=== PATIENT | female | born 1945 | race Caucasian/White ===

== ENCOUNTER → 2016-06-07 | Outpatient (CLI) | payer MEDICARE, OTHER ==
--- NOTE | 2016-06-07 13:07 | BD ---
EXAMINATION TYPE: MG DEXA axial skeleton. DATE OF EXAM: 06/07/2016 12:46 PM COMPARISON: 02.29.2012 DEXA bone scan. CLINICAL HISTORY: M81.0 OSTEOPOROSIS Height: 57 Weight: 147 FRAX RISK QUESTIONS: Alcohol (3 or more units per day): NO Family History (Parent hip fracture): YES Glucocorticoids (More than 3mos): YES (Ex: prednisone, prednisolone, methylprednisolone, dexamethasone, and hydrocortisone). History of Fracture in Adulthood: YES Secondary Osteoporosis: YES 1. Type 1 Diabetes: NO 2. Hyperthyroidism: NO 3. Menopause before 45: YES 4. Malnutrition: NO 5. Chronic liver disease: NO Rheumatoid Arthritis: NO Current Tobacco Use: NO RISK FACTORS HISTORY OF: Other Fractures since Age 49: RT SHOULDER, LT HUMERUS When: > 49 YRS OLD Family History of Osteoporosis: YES, HER MOTHER, BROKEN FEMUR Smoke tobacco: NO Drink Alcohol: NO Active: YES Diet low in dairy products/other sources of calcium: YES Postmenopausal woman: 40 YRS OLD.. TOTAL HYST Take estrogen and/or progesterone medications: NONE NOW BUT ESTROGEN FOR 19 YRS. IN THE PAST How lon YRS Lost more than 2 inches in height since high school: YES Adrenal Insufficiency: NO MEDICATIONS: Prednisone or other steroids: PREDNISONE ON AND OFF FOR ILLNESS AND PAIN....NOT CONTINUOUS. Thyroid Medications: YES Which medication: SYNTHROID How Long: OVER 15 YRS Osteoporosis Medications: PROLIA How Lon YRS Additional Medications: CALCIUM AND VIT D, BP MEDS, EFFEXOR, JENYLIA FOR MS, BP MEDS...X3 Additional History: MS, OSTEOPOROSIS,HYPERTENSION EXAM MEASUREMENTS: Bone mineral densitometry was performed using the [employer] System. Bone mineral density as measured about the Lumbar spine is: ----- L1-L4(G/cm2): 1.116 T Score Values are as follows: ----- L1: -1.6 ----- L2: -1.0 ----- L3: -0.7 ----- L4: -0.5 ----- L1-L4: -0.9 Bone mineral density has: Increased 16.6% since study of: 02.29.2012 Bone mineral density about the R hip (g/cm2): 0.809 Bone mineral density about the L hip (g/cm2): 0.816 T Score values are as follows: -----R Neck: -2.1 -----L Neck: -2.1 -----R Intertrochanter: -2.0 -----L Intertrochanter: -1.7 Bone mineral density has: Increased 10.5% since study of: 02.29.2012 FRAX %'S: 30.0% CHANCE OF A MAJOR OSTEOPOROTIC FX AND A 11.1% FOR A HIP FX.....PROBABILITY OF FX IN 10 YRS TIME IMPRESSION: Osteopenia (T Score between -2.5 and -1 as noted by T score values at femoral neck level in both hips . Bone density is overall improved from prior exam. There remains slightly increased risk of fracture and the patient may be considered for treatment. Re-Screen 1-2 years. NOTE: T-SCORE=SD OF THE YOUNG ADULT MEAN.
--- NOTE | 2016-06-07 14:35 | MM ---
Reason for exam: screening (asymptomatic). Last mammogram was performed 1 year and 4 months ago. History: Patient is postmenopausal. Took estrogen for 19 years beginning at age 40. Physical Findings: A clinical breast exam by your physician is recommended on an annual basis and results should be correlated with mammographic findings. MG Screening Mammo w CAD Bilateral CC and MLO view(s) were taken. Prior study comparison: February 19, 2015, bilateral MG screening mammo w CAD. July 27, 2010, bilateral digital screening mammo w/CAD. There are scattered fibroglandular densities. Finding: There are typically benign round calcifications in the central position of the left breast. There is no discrete abnormality. ASSESSMENT: Negative, BI-RAD 1 RECOMMENDATION: Routine screening mammogram of both breasts in 1 year.
== END | disposition home or self-care (01) ==
LOC: RADMAMWWP 12:03
PROVIDERS: ATTEND Family Medicine
DX: Z12.31 Encounter for screening mammogram for malignant neoplasm of breast (principal); M85.80 Other specified disorders of bone density and structure, unspecified site
CPT/HCPCS: 77080; G0202; 36415; 80061; 82306; 85025

== ENCOUNTER → 2016-06-07 | Outpatient (CLI) | payer MEDICARE, OTHER ==
[2016-06-07 13:03] LABS: Basophils # (A) 0.1 k/uL (0-0.2); Basophils % (A) 1 %; CHCM 33.5; Eosinophils # (A) 0.3 k/uL (0-0.7); Eosinophils % (A) 5 %; HCT 44.1 % (34.0-46.0); HDW 2.44; HGB 14.6 gm/dL (11.4-16.0); Luc # (Auto) 0.15; Luc % (Auto) 3; Lymphocytes # (A) 0.4 k/uL (1.0-4.8); Lymphocytes % (A) 7 %; MCH 32.8 pg (25.0-35.0); MCHC 33.1 g/dL (31.0-37.0); Mean Platelet Volume 7.5; Monocytes # (A) 0.3 k/uL (0-1.0); Monocytes % (A) 6 %; Neutrophils # (A) 4.7 k/uL (1.3-7.7); Neutrophils % (A) 79 %; RBC 4.45 m/uL (3.80-5.40); RDW 12.8 % (11.5-15.5); WBC (Perox) 6.39
[2016-06-07 13:42] LABS: Cholesterol 179 mg/dL (<200); HDL Cholesterol 63 mg/dL (40-60); Triglycerides 163 mg/dL (<150)
== END | disposition home or self-care (01) ==
LOC: LABWHC1 12:44
PROVIDERS: ATTEND Nurse Practitioner Acute Care
DX: E55.9 Vitamin D deficiency, unspecified (principal); Z51.81 Encounter for therapeutic drug level monitoring
CPT/HCPCS: 36415; 80061; 82306; 85025

== ENCOUNTER → 2016-07-21 | Outpatient (CLI) | payer MEDICARE, OTHER ==
[~2016-07-21] MED LIST: DENOSUMAB 60 MG/ML 1 ML SYRINGE SQ ONE
[2016-07-21 14:15] VITALS: BP 124/80; PULSE 68; RESP 16; TEMP 98
== END | disposition home or self-care (01) ==
LOC: PROCWHC3 13:35
PROVIDERS: ATTEND Family Medicine
DX: M81.0 Age-related osteoporosis without current pathological fracture (principal)
CPT/HCPCS: 96372; J0897

== ENCOUNTER → 2016-12-27 | Outpatient (CLI) | payer MEDICARE, OTHER ==
[2016-12-27 14:38] LABS: Basophils % (A) 1 %; CH 31.3; CHCM 31.9; Eosinophils # (A) 0.2 k/uL (0-0.7); Eosinophils % (A) 3 %; HCT 42.6 % (34.0-46.0); HDW 2.27; HGB 13.7 gm/dL (11.4-16.0); Luc # (Auto) 0.11; Luc % (Auto) 1; Lymphocytes # (A) 0.6 k/uL (1.0-4.8); Lymphocytes % (A) 7 %; MCH 31.9 pg (25.0-35.0); MCHC 32.3 g/dL (31.0-37.0); MCV 98.6 fL (80.0-100.0); Mean Platelet Volume 9.1; Monocytes # (A) 0.5 k/uL (0-1.0); Monocytes % (A) 6 %; Neutrophils # (A) 6.8 k/uL (1.3-7.7); Neutrophils % (A) 82 %; RBC 4.31 m/uL (3.80-5.40); RDW 14.1 % (11.5-15.5); WBC 8.3 k/uL (3.8-10.6); WBC (Perox) 8.84
[2016-12-27 14:50] LABS: ALT 44 U/L (9-52); AST 20 U/L (14-36); Alkaline Phosphatase 71 U/L (38-126); Anion Gap 11 mmol/L; Blood Urea Nitrogen 17 mg/dL (7-17); Calcium 9.5 mg/dL (8.4-10.2); Carbon Dioxide 25 mmol/L (22-30); Chloride 102 mmol/L (98-107); Glucose 96 mg/dL (74-99); Non-African American GFR(MDRD) >60 (>60 ml/min/1.73 sqM); Sodium 138 mmol/L (137-145); Total Bilirubin 0.4 mg/dL (0.2-1.3); Total Protein 6.5 g/dL (6.3-8.2)
[2016-12-31 14:49] LABS: Mis test requested (Blood) Stratify JCV Ab/Indx
== END | disposition home or self-care (01) ==
LOC: LABWHC1 14:07
PROVIDERS: ATTEND Nurse Practitioner Acute Care
DX: E55.9 Vitamin D deficiency, unspecified (principal); G35 Multiple sclerosis; R41.3 Other amnesia
CPT/HCPCS: 36415; 80053; 82306; 82607; 85025

== ENCOUNTER → 2016-12-28 | Outpatient (CLI) | payer MEDICARE, OTHER ==
--- NOTE | 2016-12-28 12:14 | MR ---
EXAMINATION TYPE: MR brain wo/w con DATE OF EXAM: 12/28/2016 COMPARISON: Prior MRI brain December 18, 2015. HISTORY: MS TECHNIQUE: Multiplanar, multisequence images of the brain and brainstem is performed without and with IV contras t, utilizing 7.5 mL intravenous Gadavist gadolinium contrast is administered intravenously. Demyelin ating disease protocol with additional Sagittal Flair sequence performed. FINDINGS: T2 Lesions Present : Yes Approximate Number of Lesions: Difficult to accurately quantify due to confluent periventricular appe arance redemonstrated Locations Identified : Confluent periventricular with scattered deep and juxtacortical lesions presen t. Size of Reference Lesion(s): 1. 1.2 cm x 0.7 cm x 1.6 cm on axial image 24 and sagittal image 24 high right parietal centrum semi ovale lesion stable 2 3.1 cm x 1.0 cm x 1.4 cm on axial image 12 and sagittal image 9 left temporal periventricular les ion felt stable Enhancing Lesion(s) Present: Yes rectangular area of enhancement right aspect of medial cerebellum se en best sagittal image 90 series 701 appears to extend to vermis on sagittal image [address] of right mid brain on axial image 5 series 702 new from prior. T1 Hypointense Lesion(s) Present: Yes Change from Prior: Stable Diffusion weighted images demonstrate no evidence of a recent infarct or other diffusion abnormality. There is no worrisome extra-axial fluid collection. The ventricular system and cisternal spaces ar e normal in size and appearance. The brain volume is age appropriate. Midline structures demonstrate normal morphology. Prominent sella is redemonstrated. The craniocervi hawa junction appears within normal limits. Post contrast images redemonstrates 7 mm area of homogene ous extra-axial enhancement right superior temporal region felt to reflect small meningioma on axial image 14 confirmed on sagittal image 138. This is unchanged from prior. The dural venous sinuses appe ar patent. Mild mucosal thickening ethmoid sinuses bilaterally is present. Globes are intact. IMPRESSION: Moderate to severe nonspecific white matter changes redemonstrated likely on basis of mul tiple sclerosis and/or combination of chronic small vessel ischemic change. Not significantly changed from prior however there is rectangular shaped area of enhancement right cerebellum present that zuniga s not appear to correlate with white matter focus, etiology uncertain. Active disease needs to BE con sidered.
== END | disposition home or self-care (01) ==
LOC: RADMRIMAIN 10:53
PROVIDERS: ATTEND Nurse Practitioner Acute Care
DX: R90.82 White matter disease, unspecified (principal); G35 Multiple sclerosis
CPT/HCPCS: 70553; A9581

== ENCOUNTER → 2016-12-29 | Outpatient (CLI) | payer MEDICARE, OTHER ==
--- NOTE | 2016-12-29 14:35 | MR ---
MRI CERVICAL SPINE: CLINICAL HISTORY: Multiple sclerosis TECHNIQUE: Multiplanar, multisequence imaging of the cervical spine is performed without and with IV contrast, 7 cc of gadolinium was given intravenously. Multiple sclerosis protocol with additional PD sagittal sequence obtained. COMPARISON: MRI cervical spine December 18, 2015 FINDINGS: Coronal images show persistent levoconvex scoliosis centered in the upper thoracic spine. S agittal images of the cervical spine show the craniocervical junction to appear within normal limits. The cervical and upper thoracic spinal cord is normal in course, caliber, and signal. There is pers istent subtle grade 1 retrolisthesis of C5 on C6. The vertebral body heights remain normal. There is persistent mild to moderate multilevel disc space narrowing most prominent at C4-C5 and C5-C6 levels . Posterior disc herniations are seen C3-C4 through C6-C7 level on sagittal images similar to prior. The bone marrow signal intensity shows some endplate diminished T1 and T2 signal anterior C5-C6 leve l where there is mild to moderate spurring consistent with Modic type III degenerative change. No ramón picious enhancement is noted. Axial images show C2-C3 level to remain within normal limits. Axial images at C3-C4 level show broad-based central disc protrusion mildly effacing anterior thecal sac, bilateral neural foramina are patent. No significant change from prior study is seen. Axial images at C4-C5 level show spondylolisthesis and broad-based posterior disc protrusion effacing anterior thecal sac with some left-sided uncovertebral facet degenerative changes, bilateral neural foramina remain patent. No significant change from prior. Axial images at C5-C6 level show most prominent broad-based posterior disc protrusion effacing anteri or thecal sac and causing mild to moderate left greater than right neural foraminal narrowing. No sig nificant change from prior study is seen. Axial images at C6-C7 level show right paracentral disc protrusion effacing anterior thecal sac, bila teral neural foramina are patent. Findings stable from prior. Axial images at C7-T1 level are felt within normal limits. Visualized portion of thyroid gland is unremarkable. No suspicious enhancement is seen. IMPRESSION: No MRI evidence for demyelinating disease involvement in the cervical spinal cord. Multil evel degenerative changes in the cervical spine as detailed above most prominent at C4-C5 and C5-C6 l evels. Overall no significant change from prior MRI is noted.
== END | disposition home or self-care (01) ==
LOC: RADMRIMAIN 12:42
PROVIDERS: ATTEND Psychiatry & Neurology Neurology
DX: M47.812 Spondylosis without myelopathy or radiculopathy, cervical region (principal)
CPT/HCPCS: 72156; A9581

== ENCOUNTER → 2016-12-30 | Outpatient (CLI) | payer MEDICARE, OTHER ==
--- NOTE | 2016-12-30 16:03 | MR ---
EXAMINATION TYPE: MR lumbar spine wo/w con DATE OF EXAM: 12/30/2016 COMPARISON: Prior MR lumbar spine 12/18/2015 HISTORY: Low Back Pain TECHNIQUE: Multiplanar, multisequence images of the lumbar spine were acquired utilizing 7.5 mL intravenous Gada vist gadolinium contrast. L1-L2: Posterior broad-based disc bulge causes mild anterior mass effect on the thecal sac. There is facet arthropathy. No significant foraminal encroachment or central stenosis. L2-L3: Posterior broad-based disc bulge causes mild anterior mass effect on the thecal sac. There is some facet arthropathy. There is some encroachment on the lateral recesses. On mild central stenosis. L3-L4: Posterior broad-based disc bulge causes anterior mass effect on the thecal sac similar to prio r exam. Facet arthropathy with hypertrophy of ligamentum flavum encroaches on the lateral recesses. C ircumferential extension of disc material encroaches on the neural foramina greater on the right than on the left. L4-L5: Listhesis contributes to cause a trefoil appearance of the thecal sac due to facet arthropathy and hypertrophy of ligamentum flavum, circumferential extension of posterior disc bulge causes mild anterior mass effect on the thecal sac and lateral extension causes foraminal encroachment left great er than right. L5-S1: Facet arthropathy changes present. Posterior central disc herniation shows a similar appearanc e and shows mild central anterior mass effect on the thecal sac. Circumferential extension of endplat e disc complex causes foraminal encroachment greater on the left likely contributed by the spinal cur vature. Lumbar segments are intact. No paraspinal masses are identified. Conus medullaris has a normal appe arance. Scoliotic curvature is again noted. Lumbar vertebral bodies show stable height and alignment, there is anterolisthesis grade 1 L4-5. Loss of disc height and signal is present at the intervertebr al levels, there is endplate discogenic marrow signal change, multilevel spondylosis. T11 shows mild anterior wedging as on prior exam. No significant interval change in enhancement following contrast menstruation. IMPRESSION: Degenerative disc disease and facet arthropathy, multilevel foraminal encroachment, spinal curvature, spondylolisthesis all similar to prior exam.
== END | disposition home or self-care (01) ==
LOC: RADMRIMAIN 12:09
PROVIDERS: ATTEND Nurse Practitioner Acute Care
DX: M51.36 Other intervertebral disc degeneration, lumbar region (principal); M46.96 Unspecified inflammatory spondylopathy, lumbar region; M43.16 Spondylolisthesis, lumbar region; M54.2 Cervicalgia; G35 Multiple sclerosis
CPT/HCPCS: 72158; A9581

== ENCOUNTER → 2017-04-08 | Outpatient (CLI) | payer MEDICARE, OTHER | END | disposition home or self-care (01) | LOC: PROCWHC3 14:43 | PROVIDERS: ATTEND Physician Assistant | DX: J11.1 Influenza due to unidentified influenza virus with other respiratory manifestations (principal) | CPT/HCPCS: 71046; 87502 ==

== ENCOUNTER → 2017-04-08 | Outpatient (CLI) | payer MEDICARE, OTHER ==
--- NOTE | 2017-04-08 15:34 | XR ---
EXAMINATION TYPE: XR chest 2V DATE OF EXAM: 04/08/2017 COMPARISON: 11/22/2012 HISTORY: Flulike symptoms with shortness of breath. TECHNIQUE: Frontal and lateral views of the chest are obtained. FINDINGS: There is no focal air space opacity, pleural effusion, or pneumothorax seen. Calcified rig ht midlung mass is similar to the prior exam of 11/22/2012 and again may represent a Ghon complex. Th e cardiac silhouette size is within normal limits. The osseous structures are intact. Prior fractur e deformity is seen of the left proximal humerus. Cholecystectomy clips are noted within the right up per quadrant. There is a mild dextroscoliotic curvature of the thoracic spine. IMPRESSION: No acute cardiopulmonary process.
== END | disposition home or self-care (01) ==
LOC: RADXRMAIN 15:18
PROVIDERS: ATTEND Physician Assistant
DX: B34.9 Viral infection, unspecified (principal)
CPT/HCPCS: 71046

== ENCOUNTER → 2017-05-16 | Outpatient (CLI) | payer MEDICARE, OTHER ==
[2017-05-16 17:30] LABS: Blood Urea Nitrogen 13 mg/dL (7-17)
== END | disposition home or self-care (01) ==
LOC: LABWHC1 16:48
PROVIDERS: ATTEND Psychiatry & Neurology Neurology
DX: G35 Multiple sclerosis (principal)
CPT/HCPCS: 36415; 82565; 84520

== ENCOUNTER → 2017-05-18 | Outpatient (CLI) | payer MEDICARE, OTHER ==
--- NOTE | 2017-05-18 16:26 | MR ---
EXAMINATION TYPE: MR brain wo/w con DATE OF EXAM: 05/18/2017 COMPARISON: 12/28/2016 and 12/18/2015 HISTORY: Multiple sclerosis. Follow-up exam. TECHNIQUE: Multiplanar, multisequence images of the brain and brainstem is performed without and with IV contras t, utilizing 7 mL intravenous Gadavist gadolinium contrast is administered intravenously. Demyelinat ing disease protocol with additional Sagittal Flair sequence performed. FINDINGS: T2 Lesions Present : Yes Approximate Number of Lesions: Exact number is again difficult to quantify as there is diffuse conflu ence. Locations Identified : Juxtacortical, pericallosal, and confluent periventricular Size of Reference Lesion(s): 1. 1.2 cm x 0.8 cm x 1.6 cm on axial image 25 and sagittal image 23 again within the high right christopher etal centrum semiovale. 2 0.7 cm x 1.0 cm x 0.7 cm on axial image 22 and sagittal image 13 within the left frontal pericall osal white matter. The previously seen temporal lesion is not accurately remeasured given slice selec tion. Enhancing Lesion(s) Present: No. The previously seen enhancing lesion in the right cerebellum is no l onger visualized. T1 Hypointense Lesion(s) Present: Yes Change from Prior: Stable Diffusion weighted images demonstrate no evidence of a recent infarct or other diffusion abnormality. There is no worrisome extra-axial fluid collection. The ventricular system and cisternal spaces ar e symmetrically prominent compatible with age-related volume loss. Midline structures demonstrate normal morphology. The craniocervical junction appears within normal limits. Incidental note is made of a partially into sella turcica. Small extra-axial probable meningi michael is unchanged from the prior on axial image 14 again measuring 7 mm. The dural venous sinuses appe ar patent. The visualized sinuses are clear and the globes are intact. IMPRESSION: Stable confluent nonspecific white matter change likely a combination of the patient's kn own demyelinating disease/multiple sclerosis and chronic microangiopathy. No enhancing plaques or julienne ques that demonstrate restricted diffusion to indicate active demyelinating plaques. Probable extra-a xial right hemispheric 7 mm meningioma is stable.
== END | disposition home or self-care (01) ==
LOC: RADMRIMAIN 09:15
PROVIDERS: ATTEND Psychiatry & Neurology Neurology
DX: R90.82 White matter disease, unspecified (principal); G35 Multiple sclerosis
CPT/HCPCS: 70553

== ENCOUNTER → 2017-06-30 | Outpatient (CLI) | payer MEDICARE, OTHER ==
[2017-06-30 11:42] LABS: T4, Free (Free Thyroxine) 1.04 ng/dL (0.78-2.19)
[2017-06-30 17:02] LABS: HIV AB P24 Non-Reactive (Non-Reactive); HIV P24 AG Non-Reactive (Non-Reactive)
[2017-06-30 17:32] LABS: Hepatitis A Antibody IgM Non-Reactive (Non-Reactive); Hepatitis B Core IgM Non-Reactive (Non-Reactive)
[2017-06-30 18:49] LABS: Hemoglobin A1C 5.5 % (4.0-6.0)
== END | disposition home or self-care (01) ==
LOC: LABWHC1 10:08
PROVIDERS: ATTEND Psychiatry & Neurology Pain Medicine
DX: G35 Multiple sclerosis (principal)
CPT/HCPCS: 36415; 80074; 83036; 84439; 84443; 84481; 87390

== ENCOUNTER → 2017-08-08 | Outpatient (CLI) | payer MEDICARE, OTHER ==
[2017-08-08 13:41] VITALS: BP 162/94; PULSE 77; RESP 14; TEMP 98.6
== END | disposition home or self-care (01) ==
LOC: PROCWHC3 13:21
PROVIDERS: ATTEND Family Medicine
DX: M81.0 Age-related osteoporosis without current pathological fracture (principal)
CPT/HCPCS: 96372; J0897

== ENCOUNTER 2017-10-22 12:18 | Emergency (ER) | payer MEDICARE, OTHER ==
[2017-10-22 12:26] VITALS: PULSE 66; RESP 18
[2017-10-22] MEDS ORDERED: MORPHINE SULFATE 4 MG/ML SYRINGE IM STA (12:38)
[2017-10-22] MEDS ORDERED: ORPHENADRINE 30 MG/ML 2 ML VIAL IM STA (12:38)
--- NOTE | 2017-10-22 13:13 | ED ---
Neck Injury/Pain HPI - General Chief Complaint: Neck Pain/Injury Stated Complaint: rt neck pain, both arms going numb Time Seen by Provider: 10/22/17 12:31 Source: patient, RN notes reviewed Mode of arrival: wheelchair Limitations: no limitations - History of Present Illness Initial Comments: 72-year-old female presents emergency Department chief complaint of neck pain. Patient states she's had pain for last 2 weeks after waking up with a sore neck. Patient states that she's been going to chiropractor but states that is not helping. Patient states that she was advised to have an MRI. Patient states she has some pain and rates on her right arm but denies any focal weakness, paresthesias at this time. She states occasionally that she does get some numbness tingling in her hands but nothing currently. Patient denies chest pain or shortness of breath. Denies any nausea, vomiting diarrhea constipation. Patient states that she does see Dr. Cosby for chronic pain related to MS. patient states she takes [place], Flexeril. She states that is not helping at this time. - Related Data Home Medications Medication Instructions Recorded Confirmed Atenolol 1 tab PO DAILY 09/08/14 08/08/17 Esomeprazole Magnesium [NexIUM] 1 tab PO DAILY 09/08/14 08/08/17 HYDROcodone/APAP 7.5-325MG [[place]clay 1 tab PO Q6HR PRN 09/08/14 08/08/17 7.5-325] Indomethacin [Indocin] 25 tab PO DAILY PRN 09/08/14 08/08/17 LORazepam [Ativan] 1 mg PO BID PRN 09/08/14 08/08/17 Levothyroxine Sodium [Synthroid] 1 tab PO DAILY 09/08/14 08/08/17 Quinapril HCl [Accupril] 40 tab PO DAILY 09/08/14 08/08/17 Venlafaxine HCl ER [Effexor XR] 150 tab PO DAILY 09/08/14 08/08/17 amLODIPine BESYLATE [Norvasc] 2.5 tab PO DAILY 09/08/14 08/08/17 traZODone HCL [Desyrel] 1 tab PO DAILY 09/08/14 08/08/17 valACYclovir HCL [Valtrex] 1 tab PO DAILY 09/08/14 08/08/17 Calcium Carbonate/Vitamin D3 1 tab PO DAILY 12/09/15 08/08/17 [Caltrate 600 Plus D3 Tablet] Amoxicillin 875 mg PO BID 01/21/17 01/21/17 Aspirin [Adult Low Dose Aspirin EC] 81 mg PO DAILY 08/08/17 08/08/17 Calcium Carbonate/Vitamin D3 1 tab PO DAILY 08/08/17 08/08/17 [Caltrate 600 Plus D3 Tablet] Denosumab [Prolia] 60 mg SQ ONCE 08/08/17 08/08/17 Esomeprazole Magnesium [NexIUM] 40 mg PO DAILY 08/08/17 08/08/17 Fluticasone Nasal [place] [Flonase 2 spr EA NOSTRIL DAILY 08/08/17 08/08/17 Nasal [place]] Ibuprofen [Motrin] 600 mg PO Q8HR PRN 08/08/17 08/08/17 Multivitamins, Thera [Multivitamin 1 tab PO DAILY 08/08/17 08/08/17 (formulary)] Teriflunomide [Aubagio] 14 mg PO DAILY 08/08/17 08/08/17 Previous Rx's Medication Instructions Recorded predniSONE 50 mg PO DAILY #5 tab 10/22/17 Allergies Allergy/AdvReac Type Severity Reaction Status Date / Time erythromycin base AdvReac Nausea Verified 08/08/17 13:26 Review of Systems ROS Statement: Those systems with pertinent positive or pertinent negative responses have been documented in the HPI. ROS Other: All systems not noted in ROS Statement are negative. Past Medical History Past Medical History: Deep Vein Thrombosis (DVT), Hypertension Additional Past Medical History / Comment(s): MS, spinal stenosis, degenerative disk History of Any Multi-Drug Resistant Organisms: None Reported Past Surgical History: Section, Cholecystectomy, Hysterectomy Past Psychological History: No Psychological Hx Reported Smoking Status: Never smoker Past Alcohol Use History: None Reported Past Drug Use History: None Reported General Exam Limitations: no limitations General appearance: alert, in no apparent distress Head exam: Present: atraumatic, normocephalic, normal inspection Neck exam: Present: normal inspection, tenderness (Right paraspinal right trapezius moderate), full ROM (Patient does have full range of motion but reports moderate discomfort with range of motion). Absent: meningismus, lymphadenopathy Respiratory exam: Present: normal lung sounds bilaterally. Absent: respiratory distress, wheezes, rales, rhonchi, stridor Cardiovascular Exam: Present: regular rate, normal rhythm, normal heart sounds. Absent: systolic murmur, diastolic murmur, rubs, gallop, clicks Neurological exam: Present: alert, oriented X3, CN II-XII intact, reflexes normal. Absent: motor sensory deficit Skin exam: Present: warm, dry, intact, normal color. Absent: rash Course Vital Signs 10/22/17 12:21 Temperature 98.1 F Pulse Rate 66 Respiratory 18 Rate Blood Pressure 140/91 O2 Sat by Pulse 98 Oximetry Medical Decision Making - Medical Decision Making 72-year-old female presents emergency from for right-sided neck pain which is rating down her arm. Patient has cervical radiculopathy. CT was obtained shows degenerative changes no major abnormality's. She'll follow-up with her neurologist and return for any worsening symptoms. Disposition Clinical Impression: Cervical radiculopathy Disposition: HOME SELF-CARE Condition: Stable Instructions: Cervical Radiculopathy (ED) Additional Instructions: Please return to the Emergency Department if symptoms worsen or any other concerns. Prescriptions: predniSONE 50 mg PO DAILY #5 tab Is patient prescribed a controlled substance at d/c from ED?: No Referrals: Dhiraj Pak MD [Primary Care Provider] - 1-2 days Suni Cosby MD [STAFF PHYSICIAN] - 1-2 days Time of Disposition: 14:09
--- NOTE | 2017-10-22 14:00 | CT ---
EXAMINATION TYPE: CT cervical spine wo con DATE OF EXAM: 10/22/2017 COMPARISON: Previous study dated 11/17/2011. HISTORY: pain CT DLP: 279.6 mGycm Automated exposure control for dose reduction was used. TECHNIQUE: CT scan of the cervical spine is obtained without contrast, axial images are obtained, sa gittal and coronal reformatted images are also reviewed. FINDINGS: Visualized portions of the lungs are clear. Prevertebral soft tissues are normal. There is a minimal retrograde listhesis of C5 on C6 antegrade listhesis of C3-4 on C5. Alignment is o therwise normal. Atlantoaxial relationships are normal. At C2-3, there is mild disc space loss. Intervertebral foramina are well maintained. There is mild fa cet arthropathy on the left. The uncovertebral joints are unremarkable. At C3-4, there is disc space loss. Intervertebral foramina are well maintained. There is no significa nt compressive discopathy. There is mild uncovertebral joint disease. There is left facet arthropathy . At C4-5, the intervertebral foramina are reasonably well-maintained. There is no significant compress batsheva discopathy. There is uncovertebral joint disease. At C5-6, there is bilateral intervertebral foraminal narrowing, worse on the left than the right. Thi s hypertrophic spondylosis posteriorly effacing the thecal sac. No definite protrusion is seen. There is severe intervertebral joint disease. At C6-7, there is disc space loss. There is mild left-sided intervertebral foraminal narrowing. There is mild hypertrophic spondylosis. No definite protrusion is seen. There is moderate uncovertebral hilario int disease. At C7-T1, the intervertebral foramina are well maintained. There is no significant compressive discop athy. The facets are unremarkable. IMPRESSION: 1. NO ACUTE OSSEOUS LESION. 2. DEGENERATIVE CHANGE. 3. MULTILEVEL INTERVERTEBRAL FORAMINAL NARROWING.
[2017-10-22] MEDS ORDERED: predniSONE 20 MG TAB PO STA (14:08)
[2017-10-22 14:48] VITALS: BP 144/92; TEMP 98.2
== END 2017-10-22 14:47 | disposition home or self-care (01) ==
LOC: EC 12:18
DX: M54.12 Radiculopathy, cervical region (principal); I10 Essential (primary) hypertension; G35 Multiple sclerosis; Z88.1 Allergy status to other antibiotic agents; Z79.51 Long term (current) use of inhaled steroids; Z79.82 Long term (current) use of aspirin; Z79.891 Long term (current) use of opiate analgesic; Z79.899 Other long term (current) drug therapy; Z87.39 Personal history of other diseases of the musculoskeletal system and connective tissue
CPT/HCPCS: 72125; 99284; 96372 ×2; J2270; J2360; J7512

== ENCOUNTER → 2017-11-04 | Outpatient (CLI) | payer MEDICARE, OTHER ==
--- NOTE | 2017-11-04 16:18 | CT ---
EXAMINATION TYPE: CT facial bones w con DATE OF EXAM: 11/04/2017 COMPARISON: MRI brain May 18, 2017 HISTORY: Lump to right side TMJ area CT DLP: 465.2 mGycm Automated exposure control for dose reduction was used. CONTRAST: CT scan of the facial bones is performed with IV Contrast, patient injected with 100 mL of Isovue 300 . TECHNIQUE: CT scan of the facial bones is performed with IV contrast, axial images are obtained, vicki nal reformatted images are also reviewed. FINDINGS: Temporomandibular joints are maintained bilaterally. No suspicious expansile osseous lesion is present. Adjacent soft tissue shows no worrisome solid or cystic mass or fluid collection. Visualized portion of parotid gland is felt slightly more prominent versus opposite left side without discrete solid or cystic mass or abnormal fluid collection. Metallic BB is placed at site of palpabl e abnormality axial image 17. There is artifact obscuring portions of left parotid gland on current s tudy from cavitary dental fillings and crowns. On MRI parotid glands are more symmetric in appearance . Tiny heterogeneous vessels are present on the right on MRI. Visualized paranasal sinuses are clear. Visualized mastoid air cells show no suspicious opacification . Visualized brain parenchyma redemonstrates age-related atrophy and chronic small vessel ischemic ch moustapha. IMPRESSION: No suspicious mass at level of right parotid gland at area of clinical concern.
== END | disposition home or self-care (01) ==
LOC: RADCTMAIN 15:00
PROVIDERS: ATTEND Midwife
DX: R22.0 Localized swelling, mass and lump, head (principal)
CPT/HCPCS: 82565; 84520; 70487; Q9967

== ENCOUNTER → 2017-11-21 | Outpatient (CLI) | payer MEDICARE, OTHER ==
[2017-11-21 14:33] LABS: Basophils # (A) 0.1 k/uL (0-0.2); Basophils % (A) 1 %; Eosinophils # (A) 1.1 k/uL (0-0.7); Eosinophils % (A) 15 %; HCT 38.7 % (34.0-46.0); HGB 12.7 gm/dL (11.4-16.0); Lymphocytes # (A) 1.3 k/uL (1.0-4.8); Lymphocytes % (A) 17 %; MCH 31.5 pg (25.0-35.0); MCHC 32.7 g/dL (31.0-37.0); MCV 96.2 fL (80.0-100.0); Mean Platelet Volume 8.5; Monocytes # (A) 0.7 k/uL (0-1.0); Monocytes % (A) 9 %; Neutrophils # (A) 4.2 k/uL (1.3-7.7); Neutrophils % (A) 56 %; Platelet Count 329 k/uL (150-450); RBC 4.03 m/uL (3.80-5.40); RDW 12.9 % (11.5-15.5); WBC 7.5 k/uL (3.8-10.6)
[2017-11-21 14:43] LABS: Albumin 3.8 g/dL (3.5-5.0); Calcium 9.5 mg/dL (8.4-10.2); Potassium 4.2 mmol/L (3.5-5.1); Total Bilirubin 0.3 mg/dL (0.2-1.3); Total Protein 6.4 g/dL (6.3-8.2)
[2017-11-21 19:48] LABS: Vitamin D 25 Hydroxy 45.6 ng/mL (30.0-100.0)
[2017-11-21 19:58] LABS: Folate, Serum 11.5 ng/mL
[2017-11-23 07:32] LABS: Vitamin B1 72 ug/L (38-122)
== END | disposition home or self-care (01) ==
LOC: LABWHC1 13:31
PROVIDERS: ATTEND Psychiatry & Neurology Pain Medicine
DX: G35 Multiple sclerosis (principal); E55.9 Vitamin D deficiency, unspecified; Z51.81 Encounter for therapeutic drug level monitoring
CPT/HCPCS: 36415; 80053; 82306; 82607; 82746; 84207; 84425; 84591; 85025

== ENCOUNTER → 2017-11-30 | Outpatient (CLI) | payer MEDICARE, OTHER ==
--- NOTE | 2017-12-02 11:09 | MM ---
Reason for exam: screening (asymptomatic). Last mammogram was performed 1 year and 6 months ago. History: Patient is postmenopausal. Took estrogen for 19 years beginning at age 40. Physical Findings: A clinical breast exam by your physician is recommended on an annual basis and results should be correlated with mammographic findings. MG Screening Mammo w CAD Bilateral CC and MLO view(s) were taken. Prior study comparison: June 07, 2016, bilateral MG screening mammo w CAD. February 19, 2015, bilateral MG screening mammo w CAD. There are scattered fibroglandular densities. No significant changes when compared with prior studies. ASSESSMENT: Negative, BI-RAD 1 RECOMMENDATION: Routine screening mammogram of both breasts in 1 year.
== END ==
LOC: RADMAMWWP 13:55
PROVIDERS: ATTEND Family Medicine
DX: Z12.31 Encounter for screening mammogram for malignant neoplasm of breast (principal)
CPT/HCPCS: 77067

== ENCOUNTER → 2018-06-12 | Outpatient (CLI) | payer MEDICARE, OTHER ==
--- NOTE | 2018-06-12 17:17 | BD ---
EXAMINATION TYPE: Axial Bone Density DATE OF EXAM: 06/12/2018 COMPARISON: 06/07/2016 CLINICAL HISTORY: 72-year-old female disorder bone Height: 56.5 IN Weight: 145 LBS FRAX RISK QUESTIONS: Family History (Parent hip fracture): YES MOTHER History of Fracture in Adulthood: LT HUMERUS FX AGE 63 Secondary Osteoporosis: 3. Menopause before 45: TOTAL HYST AGE 39 RISK FACTORS HISTORY OF: Family History of Osteoporosis: YES MOTHER Active: YES Postmenopausal woman: AGE 39 Take estrogen and/or progesterone medications: NOT NOW How long: AGE 39 - 54 Lost more than 2 inches in height since high school: YES 2 02/15 " MEDICATIONS: Thyroid Medications: YES Which medication: Synthroid How Lon + YEARS Osteoporosis Medications: NOT NOW Which medication: PROLIA INJECTIONS How Lon YEARS Additional Medications: BLOOD PRESSURE MEDS, ANTI DEPRESSANT, SYNTHROID, ALLERGY PILL,TRAZODONE, EXAM MEASUREMENTS: Bone mineral densitometry was performed using the [email or web address] System. Bone mineral density as measured about the Lumbar spine is: ----- L1-L4(G/cm2): 1.025 T Score Values are as follows: ----- L2: -1.5 ----- L3: -1.0 ----- L4: -0.8 ----- L1-L4: -1.3 Bone mineral density has: Decreased -4.3% since study of: 06/07/2016 Bone mineral density about the R hip (g/cm2): 0.719 Bone mineral density about the L hip (g/cm2): 0.693 T Score values are as follows: -----R Neck: -2.3 -----L Neck: -2.5 -----R Total: -2.1 -----L Total: -2.2 Bone mineral density has: Decreased -9.1% since study of: 06/07/2016 IMPRESSION: Osteoporosis (T Score less than -2.5). There is increased fracture risk and therapy is usually indicated based on age. Re-Screen 1-2 years. NOTE: T-SCORE=SD OF THE YOUNG ADULT MEAN.
== END | disposition home or self-care (01) ==
LOC: RADBDWWP 14:29
PROVIDERS: ATTEND Family Medicine
DX: M81.0 Age-related osteoporosis without current pathological fracture (principal)
CPT/HCPCS: 77080

== ENCOUNTER → 2018-07-26 | Outpatient (CLI) | payer MEDICARE, OTHER | END | disposition home or self-care (01) | LOC: LABWHC1 15:25 | PROVIDERS: ATTEND Physical Medicine & Rehabilitation | DX: Z01.812 Encounter for preprocedural laboratory examination (principal); N28.9 Disorder of kidney and ureter, unspecified | CPT/HCPCS: 36415; 82565; 84520 ==

== ENCOUNTER → 2018-08-10 | Outpatient (CLI) | payer MEDICARE, OTHER ==
--- NOTE | 2018-08-10 19:56 | NM ---
EXAMINATION TYPE: NM bone scan whole body DATE OF EXAM: 08/10/2018 COMPARISON: NONE HISTORY: Back pain Delayed whole-body scanning was performed following the injection of 23.8 mCi Tc 99m MDP. Images acq uired 3.5 hours post injection. FINDINGS: Intense focal uptake is seen of the sacroiliac joints, left greater than right that can be seen in sa cral insufficiency fractures. There are also focal areas of abnormal uptake within the posterior righ t seventh rib and anterior left second rib as well as at L5, L4, L3, L1, T10, and to a lesser degree of T8. Asymmetric uptake is seen of the acromioclavicular joints, glenohumeral joints, sternoclavicul ar, knees, ankles, wrists, and elbows all on a degenerative basis. Uptake is also seen throughout the cervical spine, thoracic spine and lumbar spine to a lesser degree than the focal areas of uptake as described above. IMPRESSION: Multifocal normal areas of uptake could be on the basis of multifocal metastasis or osseous insuffici ency fractures. Thoracic spine and lumbar spine x-rays are recommended to evaluate for compression de formities and MRI of the sacrum could evaluate for bone marrow edema of sacral insufficiency fracture .
== END | disposition home or self-care (01) ==
LOC: RADNMMAIN 11:07
PROVIDERS: ATTEND Family Medicine
DX: T14.8XXA Other injury of unspecified body region, initial encounter (principal)
CPT/HCPCS: 78306; A9503

== ENCOUNTER → 2018-09-07 | Outpatient (CLI) | payer MEDICARE, OTHER | END | disposition home or self-care (01) | LOC: PROCWHC3 13:37 | PROVIDERS: ATTEND Physician Assistant | DX: Z53.9 Procedure and treatment not carried out, unspecified reason (principal) ==

== ENCOUNTER → 2018-09-13 | Outpatient (CLI) | payer MEDICARE, OTHER ==
[2018-09-13 14:43] VITALS: BP 131/79; PULSE 73; RESP 16; TEMP 98.2
== END ==
LOC: PROCWHC3 13:57
PROVIDERS: ATTEND Physician Assistant
DX: M81.0 Age-related osteoporosis without current pathological fracture (principal)
CPT/HCPCS: 96372

== ENCOUNTER → 2018-10-11 | Outpatient (CLI) | payer MEDICARE, OTHER ==
--- NOTE | 2018-10-12 04:27 | MR ---
EXAMINATION TYPE: MR thoracic spine wo/w con DATE OF EXAM: 10/11/2018 COMPARISON: None HISTORY: Multiple sclerosis, Pain, Past hx of CA CONTRAST: Standard multiplanar, multisequence MRI departmental protocol utilizing 6.5 mL intravenous Gadavist g adolinium contrast. FINDINGS: Thoracic vertebra have normal alignment. There is 20% compression deformity of T10 vertebra l body. There is 10% depression superior endplate of T11. There is 30% compression deformity of L1 ve rtebral body. The contrast images show no pathologic enhancement. Thoracic spinal cord has fairly nor mal signal pattern. There is no edema. There are spondylotic changes in the cervical spine with poste rior mild disc herniation at levels from C3 to C6. There is no significant spinal stenosis. There is developmentally adequate canal in the thoracic and lumbar spine. There is no thoracic paraspinal mass . There is an apparent 10 mm nodule in the right lower lobe. IMPRESSION: Thoracic and lumbar compression fractures probably due to osteoporosis. No pathologic enhancement see n to suggest metastatic disease. No evidence of demyelinating disease in the thoracic spinal cord. Multilevel spondylotic changes. Right lower lobe nodule. I have no recent chest exam to compare.
== END | disposition home or self-care (01) ==
LOC: RADMRIMAIN 20:07
PROVIDERS: ATTEND Internal Medicine Hematology & Oncology
DX: R91.1 Solitary pulmonary nodule (principal); G35 Multiple sclerosis
CPT/HCPCS: 72157; A9585

== ENCOUNTER → 2018-10-11 | Outpatient (CLI) | payer MEDICARE, OTHER | END | disposition home or self-care (01) | LOC: LABWHC1 10:43 | PROVIDERS: ATTEND Psychiatry & Neurology Pain Medicine | DX: Z53.9 Procedure and treatment not carried out, unspecified reason (principal) ==

== ENCOUNTER → 2018-10-17 | Outpatient (CLI) | payer MEDICARE, OTHER ==
[2018-10-17 10:40] LABS: Basophils # (A) 0.1 k/uL (0-0.2); Basophils % (A) 1 %; Eosinophils # (A) 0.3 k/uL (0-0.7); Eosinophils % (A) 6 %; HGB 13.2 gm/dL (11.4-16.0); Lymphocytes # (A) 1.1 k/uL (1.0-4.8); Lymphocytes % (A) 21 %; MCH 31.2 pg (25.0-35.0); MCHC 31.3 g/dL (31.0-37.0); MCV 99.5 fL (80.0-100.0); Macrocytosis Slight; Mean Platelet Volume 8.2; Monocytes # (A) 0.3 k/uL (0-1.0); Monocytes % (A) 6 %; Neutrophils # (A) 3.4 k/uL (1.3-7.7); Neutrophils % (A) 64 %; Platelet Count 375 k/uL (150-450); RBC 4.22 m/uL (3.80-5.40); RDW 14.8 % (11.5-15.5); WBC 5.3 k/uL (3.8-10.6)
[2018-10-17 16:40] LABS: Vitamin D 25 Hydroxy 23.2 ng/mL (30.0-100.0)
[2018-10-17 16:45] LABS: Folate, Serum 23.8 ng/mL
[2018-10-17 16:55] LABS: African American GFR (CKD) 98.9 (60.0-200.0); Albumin 4.2 g/dL (3.80-4.90); Albumin/Globulin Ratio 2.1 (1.60-3.17); Anion Gap 1.9 mmol/L (4.00-12.00); BUN/Creat Ratio 15.71 Ratio (12.00-20.00); Calcium 8.6 mg/dL (8.7-10.3); Carbon Dioxide 29.1 mmol/L (21.6-31.8); Total Bilirubin 0.3 mg/dL (0.3-1.2); Total Protein 6.2 g/dL (6.2-8.2)
[2018-10-17 17:01] LABS: T4, Free (Free Thyroxine) 1.2 ng/dL (0.80-1.80)
[2018-10-17 17:30] LABS: HIV 1 AB Non-Reactive (Non-Reactive); HIV AB P24 Non-Reactive (Non-Reactive); HIV P24 AG Non-Reactive (Non-Reactive)
[2018-10-17 19:01] LABS: Hemoglobin A1C 5.2 % (4.0-6.0)
[2018-10-18 05:58] LABS: Varicella IgM Antibody 0.38 INDEX (<=0.90)
== END | disposition home or self-care (01) ==
LOC: LABWHC1 09:37
PROVIDERS: ATTEND Psychiatry & Neurology Pain Medicine
DX: G35 Multiple sclerosis (principal)
CPT/HCPCS: 36415; 80053; 82306; 82607; 82746; 83036; 84207; 84425; 84439; 84443; 84481; 84591; 85025; 86704; 86705; 86706; 86787; 87340; 87390

== ENCOUNTER → 2018-11-01 | Outpatient (CLI) | payer MEDICARE, OTHER ==
--- NOTE | 2018-11-02 07:20 | XR ---
EXAMINATION TYPE: XR ribs bilateral DATE OF EXAM: 11/01/2018 CLINICAL HISTORY: Pain, Fall 8 views of the bilateral ribs fail demonstrate evidence for displaced rib fracture or secondary sign of rib fracture. Stable calcified mass right midlung zone dating back to 11/22/2012. No evidence for p neumothorax. IMPRESSION: 1. No displaced rib fractures seen. ICD 10 NO FRACTURE, INITIAL EVALUATION
== END | disposition home or self-care (01) ==
LOC: RADXRMAIN 17:15
PROVIDERS: ATTEND Internal Medicine Hematology & Oncology
DX: I10 Essential (primary) hypertension (principal); D75.9 Disease of blood and blood-forming organs, unspecified; R90.89 Other abnormal findings on diagnostic imaging of central nervous system; R93.6 Abnormal findings on diagnostic imaging of limbs
CPT/HCPCS: 71110

== ENCOUNTER → 2019-01-15 | Outpatient (CLI) | payer MEDICARE, OTHER | END | disposition home or self-care (01) | LOC: LABWHC1 14:25 | PROVIDERS: ATTEND Psychiatry & Neurology Pain Medicine | DX: E55.9 Vitamin D deficiency, unspecified (principal) | CPT/HCPCS: 36415; 82306 ==

== ENCOUNTER → 2019-09-04 | Outpatient (CLI) | payer MEDICARE, OTHER ==
[~2019-09-04] MED LIST changes: +DENOSUMAB 60 MG/ML 1 ML SYRINGE SQ NR; -DENOSUMAB 60 MG/ML 1 ML SYRINGE SQ ONE
[2019-09-04 14:20] VITALS: BP 149/96; PULSE 66; RESP 16; TEMP 98.3
== END | disposition home or self-care (01) ==
LOC: PROCWHC3 14:11
PROVIDERS: ATTEND Family Medicine
DX: M81.0 Age-related osteoporosis without current pathological fracture (principal)
CPT/HCPCS: 96372; J0897

== ENCOUNTER → 2019-09-12 | Outpatient (CLI) | payer MEDICARE, OTHER ==
[2019-09-12 13:21] LABS: Basophils # (A) 0.1 k/uL (0-0.2); Basophils % (A) 2 %; Eosinophils # (A) 0.4 k/uL (0-0.7); Eosinophils % (A) 6 %; HCT 44.6 % (34.0-46.0); HGB 14.2 gm/dL (11.4-16.0); Lymphocytes # (A) 0.9 k/uL (1.0-4.8); Lymphocytes % (A) 15 %; MCH 31.7 pg (25.0-35.0); MCHC 31.8 g/dL (31.0-37.0); MCV 99.8 fL (80.0-100.0); Mean Platelet Volume 9.7; Monocytes # (A) 0.4 k/uL (0-1.0); Monocytes % (A) 7 %; Neutrophils # (A) 3.9 k/uL (1.3-7.7); Neutrophils % (A) 68 %; Platelet Count 342 k/uL (150-450); RBC 4.48 m/uL (3.80-5.40); RDW 13.1 % (11.5-15.5); WBC 5.7 k/uL (3.8-10.6)
[2019-09-12 20:02] LABS: African American GFR (CKD) 83.6 (60.0-200.0); Albumin 4.5 g/dL (3.80-4.90); Albumin/Globulin Ratio 1.96 (1.60-3.17); Anion Gap 5.2 mmol/L (4.00-12.00); BUN/Creat Ratio 17.5 Ratio (12.00-20.00); Calcium 9.4 mg/dL (8.7-10.3); Carbon Dioxide 29.8 mmol/L (21.6-31.8); Globulin 2.3 g/dL (1.6-3.3); Non-African American GFR(CKD) 72.1 (60.0-200.0); Potassium 4.7 mmol/L (3.5-5.5); Total Bilirubin 0.5 mg/dL (0.2-1.2); Total Protein 6.8 g/dL (6.2-8.2)
[2019-09-12 20:10] LABS: T4, Free (Free Thyroxine) 1.3 ng/dL (0.80-1.80)
[2019-09-12 20:53] LABS: HIV 2 AB Non-Reactive (Non-Reactive); HIV AB P24 Non-Reactive (Non-Reactive); HIV P24 AG Non-Reactive (Non-Reactive)
[2019-09-12 20:54] LABS: Hemoglobin A1C 5.7 % (4.0-6.0)
[2019-09-12 22:01] LABS: Hepatitis B Core IgM Non-Reactive (Non-Reactive); Hepatitis B Surface AB- Quant 3.5 mIU/mL; Hepatitis B Surface Antibody Non-Reactive (Non-Reactive); Hepatitis B Surface Antigen Non-Reactive (Non-Reactive)
[2019-09-14 05:16] LABS: Varicella IgM Antibody 0.59 INDEX (<=0.90)
== END | disposition home or self-care (01) ==
LOC: LABWHC1 11:20
PROVIDERS: ATTEND Psychiatry & Neurology Pain Medicine
DX: G35 Multiple sclerosis (principal)
CPT/HCPCS: 36415; 80053; 82306; 82607; 82746; 83036; 84207; 84425; 84439; 84443; 84481; 84591; 85025; 86704; 86705; 86706; 86787; 87340; 87390

== ENCOUNTER → 2020-09-12 | Outpatient (CLI) | payer MEDICARE, OTHER | END | disposition home or self-care (01) | LOC: LABWHC1 10:29 | PROVIDERS: ATTEND Psychiatry & Neurology Pain Medicine | DX: G35 Multiple sclerosis (principal) | CPT/HCPCS: 36415; 82040; 82042; 82784; 83916 ==

== ENCOUNTER → 2020-11-12 | Outpatient (CLI) | payer MEDICARE, OTHER ==
--- NOTE | 2020-11-12 09:00 | US ---
EXAMINATION TYPE: US abdomen complete DATE OF EXAM: 11/12/2020 COMPARISON: NONE CLINICAL HISTORY: R16.0 LIVER MASS RT LOBE. Liver mass seen on recent MRI done at Dr. Cosby's offic e, history of cholecystectomy EXAM MEASUREMENTS: Liver Length: 13.6 cm CBD: 0.5 cm Spleen: 6.9 cm Right Kidney: 8.8 x 3.6 x 4.4 cm Left Kidney: 8.5 x 3.8 x 4.5 cm Pancreas: visualized portions wnl, limited by overlying midline bowel gas Liver: appears wnl, right lobe mass seen on MRI not seen on today's exam Gallbladder: surgically absent Evidence for sonographic Anglin's sign: no CBD: wnl Spleen: visualized portions wnl, limited by overlying bowel gas Right Kidney: wnl Left Kidney: wnl Upper IVC: wnl Abd Aorta: prox and mid portions wnl, distal portion obscured by overlying midline bowel gas The intrahepatic portion of the IVC and proximal abdominal aorta are within normal limits. Common bi le duct is unremarkable. The visualized portions of the pancreas are homogenous. The spleen is unre markable. Kidneys are symmetric and free of hydronephrosis. No renal lesions are seen. IMPRESSION: No evidence for hepatic mass.
== END | disposition home or self-care (01) ==
LOC: RADUSWWP 08:03
PROVIDERS: ATTEND Psychiatry & Neurology Neurology
DX: R16.0 Hepatomegaly, not elsewhere classified (principal)
CPT/HCPCS: 76700

== ENCOUNTER → 2022-01-06 | Outpatient (CLI) | payer MEDICARE, OTHER ==
[2022-01-06 15:36] LABS: Basophils # (A) 0.08 X 10*3/uL (0.00-0.10); Basophils % (A) 1.3 %; Eosinophils # (A) 0.41 X 10*3/uL (0.04-0.35); Eosinophils % (A) 6.9 %; HCT 42.3 % (37.2-46.3); HGB 13.4 g/dL (12.0-15.0); Immature Grans, Automated 0.3 %; Lymphocytes # (A) 1.17 X 10*3/uL (0.90-5.00); Lymphocytes % (A) 19.6 %; MCH 30.3 pg (27.0-32.0); MCHC 31.7 g/dL (32.0-37.0); MCV 95.7 fL (80.0-97.0); Mean Platelet Volume 12.9 fL (9.5-12.2); Monocytes # (A) 0.64 X 10*3/uL (0.20-1.00); Monocytes % (A) 10.7 %; NRBC Per 100 WBC 0 /100 WBCS (0.0-0.0); Neutrophils # (A) 3.66 X 10*3/uL (1.80-7.70); Neutrophils % (A) 61.2 %; Platelet Count 287 X 10*3/uL (140-440); RBC 4.42 X 10*6/uL (4.10-5.20); RDW 12.5 % (11.5-14.5); WBC 5.98 X 10*3/uL (4.50-10.00)
[2022-01-06 18:19] LABS: African American GFR (CKD) 87.1 (60.0-200.0); Anion Gap 8.3 mmol/L (10.00-18.00); BUN/Creat Ratio 21.2 Ratio (12.00-20.00); Blood Urea Nitrogen 16.2 mg/dL (9.0-27.0); Calcium 9.7 mg/dL (8.7-10.3); Carbon Dioxide 28.5 mmol/L (20.0-27.5); Non-African American GFR(CKD) 75.2 (60.0-200.0); Potassium 5.5 mmol/L (3.5-5.5)
== END | disposition home or self-care (01) ==
LOC: LABPAT 10:14
PROVIDERS: ATTEND Orthopaedic Surgery Hand Surgery
DX: Z01.812 Encounter for preprocedural laboratory examination (principal); G56.01 Carpal tunnel syndrome, right upper limb
CPT/HCPCS: 80048; 85025

== ENCOUNTER → 2022-01-11 | Outpatient (CLI) | payer MEDICARE, OTHER ==
[2022-01-11 12:35] VITALS: BP 120/63; PULSE 75; RESP 16; TEMP 98.3
== END ==
LOC: PROCWHC3 12:00
PROVIDERS: ATTEND Family Medicine
DX: M81.0 Age-related osteoporosis without current pathological fracture (principal); E66.01 Morbid (severe) obesity due to excess calories; Z68.30 Body mass index [BMI] 30.0-30.9, adult; Z88.1 Allergy status to other antibiotic agents
CPT/HCPCS: 96372; J0897

== ENCOUNTER 2022-01-20 09:48 | Day surgery (SDC) | payer MEDICARE, OTHER ==
[2022-01-18 11:10] VITALS: BMI 29.9
--- NOTE | 2022-01-18 13:24 | P.HPOR ---
History of Present Illness H&P Date: 01/18/22 Chief Complaint: Right carpal tunnel syndrome Subjective: This is a 76 year old female that presents today for initial evaluation regarding a several year history of bilateral hand paresthesias that have been worsening.The right is worse than the left in terms of severity. She states the thumb, index and middle fingers are most symptomatic. She has tried night splinting with little relief and had a HCI in April of 2021 with good temporary relief. She has an EMG in 2020. Physical Examination: RUE: AIN/PIN/Radial/Ulnar/Median motor intact. Radial/Ulnar/Median SILT. 2+/4 Radial/Ulnar pulses palpated. 5/5 APB, 5/5 FDI. Negative Finkelsteins, negative CMC grind, positive Durkan's compression. LUE: AIN/PIN/Radial/Ulnar/Median motor intact. Radial/Ulnar/Median SILT. 2+/4 Radial/Ulnar pulses palpated. 5/5 APB, 5/5 FDI. Negative Finkelsteins, negative CMC grind, positive Durkan's compression. Imaging: EMG/NCV from 2020 of B/L upper extremities show moderate b/l carpal tunnel syndrome, R side 6.8 distal latency, left side 4.1 distal latency. Impression: 1.) B/L CTS Plan: Diagnosis and treatment options were discussed with the patient. She has failed conservative treatment and would like to proceed with endoscopic vs open right carpal tunnel release. Risks and benefits of surgery including bleeding, infection, damage to surrounding tissue, need for further surgery, possible need to convert to open procedure, residual numbness were discussed and the patient wished to go forward with surgery. The patient is agreeable with this plan. Follow up: 2 weeks post op -Henry Canela DO Orthopedic Hand/Upper Extremity Surgeon Past Medical History Past Medical History: Cancer, Deep Vein Thrombosis (DVT), GERD/Reflux, Hypertension, Musculoskeletal Disorder, Neurologic Disorder, Thyroid Disorder Additional Past Medical History / Comment(s): MS, spinal stenosis, osteoporosis, degenerative disc disease, hx dvt many yrs ago(unsure which leg), hx melanoma on right upper arm and left lower leg, migraines. History of Any Multi-Drug Resistant Organisms: None Reported Past Surgical History: Section, Cholecystectomy, Hysterectomy Additional Past Surgical History / Comment(s): Melanoma removed from right upper arm and left lower leg. Past Anesthesia/Blood Transfusion Reactions: No Reported Reaction Past Psychological History: No Psychological Hx Reported Smoking Status: Never smoker Past Alcohol Use History: None Reported Past Drug Use History: None Reported - Past Family History Father Family Medical History: Cancer Additional Family Medical History / Comment(s): Bone cancer. Medications and Allergies Home Medications Medication Instructions Recorded Confirmed Type HYDROcodone/APAP 7.5-325MG [[place] 1 tab PO Q6HR PRN 09/08/14 01/18/22 History 7.5-325] Indomethacin [Indocin] 25 tab PO DAILY PRN 09/08/14 01/18/22 History Levothyroxine Sodium [Synthroid] 50 mcg PO QAM 09/08/14 01/18/22 History Quinapril HCl [Accupril] 40 tab PO QAM 09/08/14 01/18/22 History Venlafaxine HCl ER [Effexor XR] 150 mg PO QAM 09/08/14 01/18/22 History amLODIPine BESYLATE [Norvasc] 2.5 tab PO HS 09/08/14 01/18/22 History atenoloL 100 mg PO QAM 09/08/14 01/18/22 History traZODone HCL [Desyrel] 100 tab PO HS 09/08/14 01/18/22 History valACYclovir HCL [Valtrex] 1,000 mg PO DAILY 09/08/14 01/18/22 History Denosumab [Prolia] 60 mg SQ Q182D 08/08/17 01/18/22 History Ibuprofen [Motrin] 600 mg PO Q8HR PRN 08/08/17 01/18/22 History Esomeprazole Magnesium [NexIUM] 40 mg PO QAM 01/18/22 01/18/22 History Mirabegron [Myrbetriq] 25 mg PO QAM 01/18/22 01/18/22 History Ocrelizumab [Ocrevus] 300 mg IV Q182D 01/18/22 01/18/22 History Allergies Allergy/AdvReac Type Severity Reaction Status Date / Time pineapple Allergy Burning Verified 01/18/22 10:43 throughout whole body erythromycin base AdvReac Nausea Verified 01/18/22 10:42 Physical Examination Osteopathic Statement: *. No significant issues noted on an osteopathic structural exam other than those noted in the History and Physical/Consult.
[~2022-01-20 09:48] MED LIST changes: -DENOSUMAB 60 MG/ML 1 ML SYRINGE SQ NR; +DEXAMETHASONE SOD PHOSPHATE 4 MG/ML 1 ML VIAL IV ONE; +HYDROmorphone 0.5 MG/0.5 ML SYRINGE IVP PRN; +LACTATED RINGERS 1,000 ML IV SCH; +MIDAZOLAM 2 MG/2 ML VIAL IV PRN; +ONDANSETRON 4 MG/2 ML VIAL IVP ONE; +Pre Op ABX Message 1 EACH MISC MISCELLANE ONE
[2022-01-20 10:46] VITALS: TEMP 97.2
[2022-01-20] MEDS ORDERED: LACTATED RINGERS 1,000 ML IV ONE (10:48)
[2022-01-20] MEDS ORDERED: MIDAZOLAM 2 MG/2 ML VIAL ONE (11:45)
[2022-01-20] MEDS ORDERED: fentaNYL (PF) 50 MCG/ML 2 ML AMP ONE (11:45)
[2022-01-20] MEDS ORDERED: LIDOCAINE 2% INJ 20 MG/ML (2 ML VIAL) ONE (11:45)
[2022-01-20] MEDS ORDERED: PROPOFOL 10 MG/ML 20 ML VIAL IV ONE (11:45)
[2022-01-20] MEDS ORDERED: BUPIVACAINE (PF) 0.5% 30 ML VIAL SQ ONE ×2 (11:50)
[2022-01-20] MEDS ORDERED: LIDOCAINE 2% (PF) 20 MG/ML 10 ML AMP SQ ONE ×2 (11:50)
--- NOTE | 2022-01-20 12:18 | P.OP ---
Date of Procedure: 01/20/22 Preoperative Diagnosis: Right carpal tunnel syndrome Postoperative Diagnosis: Right carpal tunnel syndrome Procedure(s) Performed: Right endoscopic carpal tunnel release Anesthesia: MAC Surgeon: Henry Canela Perfume Compounder #1: Dominic Diaz Estimated Blood Loss (ml): 0 Pathology: none sent Condition: stable Disposition: PACU Description of Procedure: This is a 76 year old female who presents today for a right endoscopic carpal tunnel release after having failed conservative treatment in the past. Risks and benefits of surgery were discussed with the patient including bleeding, damage to surrounding tissue, infection, need to convert to open procedure, need for further surgery as well as risks of anesthesia including pulmonary embolism and even and the patient wished to proceed with surgical intervention. The patients was seen in the pre-operative area by myself. Consent and H&P were completed and updated. The correct extremity was marked in the pre-operative area by myself and all other questions were answered. Operative Narrative: The patient was brought to the operating room by the department of anesthesia. They remained on the portable stretcher and a rolling hand table was brought to the side of the operative extremity. Pre-operative time out was performed indicating the correct patient, procedure and laterality. All in the room agreed. The patient was then drifted off to sleep by the department of an esthesia. MAC anesthesia was utilized and a 50:50 mixture of 1% Lidocaine and 0.5% bupivacaine was injected into the subcutaneous tissues of the palmar skin, 8ccs total. A nonsterile tourniquet was then applied to the operative extremity and the right upper extremity was then prepped and draped in normal sterile fashion. The operative extremity was the exsanguinated with an esmarch bandage and the tourniquet was inflated to 250mmHg. 15 blade scalpel was utilized to make a transverse incision on the palmar skin just ulnar to the palmaris longus tendon at the level of the distal wrist crea se. Ragnell retractor was then placed radially and blunt dissection was performed to reveal the distal forearm fascia. This was lifted with fine Karl pick ups and Littler tenotomy scissors were then used to open the forearm fascia transversely and a double skin hook was then placed. Hamate finder was placed into the carpal tunnel and then sequential sized dilators were inserted followed by the synovial elevator to separate the flexor tenosynovium from the undersurface of the transverse carpal ligament and a washboard texture was felt. The [employer] endoscopic carpal tunnel release system gun was the then inserted into the carpal tunnel hugging the deep portion of the transverse carpal ligament in line with the base of the ring finger. Transverse fibers of the ligament were directly visualized. Pressure was applied on the palm to reveal the distal extent of the transverse carpal ligament. The blade was then deployed and the distal half of the transverse carpal ligament was released. The scope was then brought distal again and remaining transverse fibers were incised with the blade. The proximal half of the transverse carpal ligament was then divided and again the scope was advanced distal and remaining transverse fibers were incised with the blade. The radial and ulnar leaflets were directly visualized and mobile consistent with complete release. Tenotomy scissors were then u tilized to release the remaining distal forearm fascia under direct visualization taking care to preserve the palmar cutaneous branch of the median nerve. Skin closure was performed with interrupted 4-0 Monocryl suture followed by Mastisol and steri strips. Sterile dressing was applied consisting of adaptic, 4x4s, Webril, and an farrukh bandage. Tourniquet was let down and the hand immediately was well perfused. The patient was then woken by the department of anesthesia and transferred to PACU in stable condition. Dominic HOLLINGSWORTH was present for the case in its entirety and assisted in major portions of the case and protection of vital neurovascular structures. Henry Canela D.O. Orthopedic Hand/Upper Extremity Surgeon
[2022-01-20 12:30] VITALS: BP 127/85; PULSE 70; RESP 15
== END 2022-01-20 12:55 | disposition home or self-care (01) ==
LOC: OR 09:48
PROVIDERS: ATTEND Orthopaedic Surgery Hand Surgery
DX: G56.03 Carpal tunnel syndrome, bilateral upper limbs (principal); I10 Essential (primary) hypertension; I82.409 Acute embolism and thrombosis of unspecified deep veins of unspecified lower extremity; E07.9 Disorder of thyroid, unspecified; K21.9 Gastro-esophageal reflux disease without esophagitis; M48.00 Spinal stenosis, site unspecified; G35 Multiple sclerosis; Z87.39 Personal history of other diseases of the musculoskeletal system and connective tissue; Z85.820 Personal history of malignant melanoma of skin; Z90.49 Acquired absence of other specified parts of digestive tract; Z98.891 History of uterine scar from previous surgery; Z90.710 Acquired absence of both cervix and uterus; Z80.8 Family history of malignant neoplasm of other organs or systems; Z79.891 Long term (current) use of opiate analgesic; Z79.1 Long term (current) use of non-steroidal anti-inflammatories (NSAID); Z79.890 Hormone replacement therapy; Z79.84 Long term (current) use of oral hypoglycemic drugs; Z88.1 Allergy status to other antibiotic agents; Z91.018 Allergy to other foods; Z79.899 Other long term (current) drug therapy
CPT/HCPCS: 29848; J2250; J1100; J2001 ×2; J2405; J3010; J2704

== ENCOUNTER → 2022-02-16 | Outpatient (CLI) | payer MEDICARE, OTHER ==
--- NOTE | 2022-02-17 08:59 | XR ---
EXAMINATION TYPE: XR chest 2V DATE OF EXAM: 02/16/2022 COMPARISON: Rib study 11/01/2018 chest x-ray 04/08/2017 INDICATION: Flulike symptoms TECHNIQUE: Frontal and lateral views of the chest are obtained. FINDINGS: The heart size is normal. The pulmonary vasculature is normal. There is an irregular high density area within the posterior right mid lung measuring approximately 3 .4 cm in size. This has slightly enlarged in prior chest x-ray. Additional evaluation with CT is rec ommended. IMPRESSION: 1. No acute pulmonary process. 2. There is an area of increased density within the right posterior midlung which is somewhat larger than the comparison. Additional workup with CT is recommended.
== END | disposition home or self-care (01) ==
LOC: RADXRMAIN 15:47
PROVIDERS: ATTEND Family Medicine
DX: J98.4 Other disorders of lung (principal); J20.9 Acute bronchitis, unspecified
CPT/HCPCS: 71046

== ENCOUNTER 2022-10-20 05:46 | Day surgery (SDC) | payer MEDICARE, OTHER ==
--- NOTE | 2022-10-19 12:32 | P.HPOR ---
History of Present Illness H&P Date: 10/19/22 Subjective: This is a 77 year old female that presents today for follow up evaluation regarding a several year history of worsening left hand paresthesias that have been worsening. She underwent a right endoscopic carpal tunnel release on 01/20/22 and has had complete relief of her symptoms. She would like to schedule a left carpal tunnel release after having failed bracing and injections. She states the numbness in the left hand is now daily and happens when she is driving and wakes her from sleep at night. Physical Examination: RUE: AIN/PIN/Radial/Ulnar/Median motor intact. Radial/Ulnar/Median SILT. 2+/4 Radial/Ulnar pulses palpated. 5/5 APB, 5/5 FDI. Negative Finkelsteins, negative CMC grind, negative Durkan's compression. LUE: AIN/PIN/Radial/Ulnar/Median motor intact. Radial/Ulnar/Median SILT. 2+/4 Radial/Ulnar pulses palpated. 5/5 APB, 5/5 FDI. Negative Finkelsteins, negative CMC grind, positive Durkan's compression. Imaging: EMG/NCV from 2020 of B/L upper extremities show moderate b/l carpal tunnel syndrome, R side 6.8 distal latency, left side 4.1 distal latency. Impression: 1.) Left carpal tunnel syndrome 2.) S/P right endoscopic carpal tunnel release Plan: Diagnosis and treatment options were discussed with the patient. She has failed conservative treatment and would like to proceed with endoscopic vs open left carpal tunnel release. Risks and benefits of surgery including bleeding, infection, damage to surrounding tissue, need for further surgery, possible need to convert to open procedure, residual numbness were discussed and the patient wished to go forward with surgery. PCP clearance is requested. The patient is agreeable with this plan. Follow up: 2 weeks post op CC: Dhiraj Pak MD -Henry Canela DO Orthopedic Hand/Upper Extremity Surgeon Past Medical History Past Medical History: Cancer, Deep Vein Thrombosis (DVT), Hypertension, Neurologic Disorder, Thyroid Disorder Additional Past Medical History / Comment(s): MS, spinal stenosis, degenerative disk , scar tissue to rt lung from pneumonia. skin cancer removed. OSTEOPOROSIS. bladder urgency History of Any Multi-Drug Resistant Organisms: None Reported Past Surgical History: Section, Cholecystectomy, Hysterectomy Additional Past Surgical History / Comment(s): Melanoma removed from right upper arm, left lower leg and removed from back of neck. colonscopy Past Anesthesia/Blood Transfusion Reactions: No Reported Reaction Smoking Status: Never smoker - Past Family History Father Family Medical History: Cancer Additional Family Medical History / Comment(s): Bone cancer. Medications and Allergies Home Medications Medication Instructions Recorded Confirmed Type HYDROcodone/APAP 7.5-325MG [[place] 1 tab PO Q6HR PRN 09/08/14 10/14/22 History 7.5-325] Indomethacin [Indocin] 25 tab PO DAILY PRN 09/08/14 10/14/22 History Levothyroxine Sodium [Synthroid] 50 mcg PO QAM 09/08/14 10/14/22 History Venlafaxine HCl ER [Effexor XR] 150 mg PO QAM 09/08/14 10/14/22 History amLODIPine BESYLATE [Norvasc] 2.5 tab PO HS 09/08/14 10/14/22 History atenoloL 100 mg PO QAM 09/08/14 10/14/22 History traZODone HCL [Desyrel] 100 tab PO HS 09/08/14 10/14/22 History valACYclovir HCL [Valtrex] 1,000 mg PO DAILY 09/08/14 10/14/22 History Denosumab [Prolia] 60 mg SQ Q182D 08/08/17 10/14/22 History Ibuprofen [Motrin] 600 mg PO Q8HR PRN 08/08/17 10/14/22 History Esomeprazole Magnesium [NexIUM] 40 mg PO QAM PRN 01/18/22 10/14/22 History Mirabegron [Myrbetriq] 25 mg PO QAM 01/18/22 10/14/22 History Ocrelizumab [Ocrevus] 300 mg IV Q182D 01/18/22 10/14/22 History Unk Citracal D3 1 tab PO DAILY 10/14/22 10/14/22 History Unk Fish Oil 1 tab PO DAILY 10/14/22 10/14/22 History Unk Hair Skin And Nails 1 tab PO DAILY 10/14/22 10/14/22 History lisinopriL [Zestril] 20 mg PO BID 10/14/22 10/14/22 History Allergies Allergy/AdvReac Type Severity Reaction Status Date / Time pineapple Allergy Burning Verified 10/14/22 14:24 throughout whole body erythromycin base AdvReac Nausea Verified 10/14/22 14:24 Physical Examination Osteopathic Statement: *. No significant issues noted on an osteopathic structural exam other than those noted in the History and Physical/Consult.
[~2022-10-20 05:46] MED LIST changes: -DEXAMETHASONE SOD PHOSPHATE 4 MG/ML 1 ML VIAL IV ONE; -HYDROmorphone 0.5 MG/0.5 ML SYRINGE IVP PRN; -LACTATED RINGERS 1,000 ML IV SCH; -MIDAZOLAM 2 MG/2 ML VIAL IV PRN; -ONDANSETRON 4 MG/2 ML VIAL IVP ONE
[2022-10-20] MEDS ORDERED: DEXAMETHASONE SOD PHOSPHATE 4 MG/ML 1 ML VIAL IV ONE (06:25)
[2022-10-20] MEDS ORDERED: ONDANSETRON 4 MG/2 ML VIAL IVP ONE (06:25)
[2022-10-20] MEDS ORDERED: LIDOCAINE 1% (10MG/ML) FOR IV START INTRADERMA PRN (06:25)
[2022-10-20] MEDS ORDERED: LACTATED RINGERS 1,000 ML IV SCH (06:25)
[2022-10-20 06:34] VITALS: TEMP 96.9
[2022-10-20] MEDS ORDERED: PROPOFOL 10 MG/ML 20 ML VIAL IV ONE (06:51)
[2022-10-20] MEDS ORDERED: MIDAZOLAM 2 MG/2 ML VIAL ONE (06:51)
[2022-10-20] MEDS ORDERED: fentaNYL (PF) 50 MCG/ML 2 ML AMP ONE (06:51)
[2022-10-20] MEDS ORDERED: BUPIVACAINE (PF) 0.5% 30 ML VIAL SQ ONE (07:00)
[2022-10-20] MEDS ORDERED: MIDAZOLAM 2 MG/2 ML VIAL IV PRN (07:00)
[2022-10-20] MEDS ORDERED: HYDROmorphone 0.5 MG/0.5 ML SYRINGE IVP PRN (07:00)
[2022-10-20] MEDS ORDERED: LIDOCAINE 2% INJ 20 MG/ML SQ ONE (07:00)
--- NOTE | 2022-10-20 07:14 | P.OP ---
Date of Procedure: 10/20/22 Preoperative Diagnosis: Right carpal tunnel syndrome Postoperative Diagnosis: Right carpal tunnel syndrome Procedure(s) Performed: Right endoscopic carpal tunnel release Anesthesia: MAC Surgeon: Henry Canela Estimated Blood Loss (ml): 0 Pathology: none sent Condition: stable Disposition: PACU Description of Procedure: This is a 77 year old female who presents today for a left endoscopic carpal tunnel release after having failed conservative treatment in the past. Risks and benefits of surgery were discussed with the patient including bleeding, damage to surrounding tissue, infection, need to convert to open procedure, need for further surgery as well as risks of anesthesia including pulmonary embolism and even and the patient wished to proceed with surgical intervention. The patients was seen in the pre-operative area by myself. Consent and H&P were completed and updated. The correct extremity was marked in the pre-operative area by myself and all other questions were answered. Operative Narrative: The patient was brought to the operating room by the department of anesthesia. They remained on the portable stretcher and a rolling hand table was brought to the side of the operative extremity. Pre-operative time out was performed indicating the correct patient, procedure and laterality. All in the room agreed. The patient was then drifted off to sleep by the department of anesthesia. MAC anesthesia was utilized and a 50:50 mixture of 1% Lidocaine and 0.5% bupivacaine was injected into the subcutaneous tissues of the palmar skin, 8ccs total. A nonsterile tourniquet was then applied to the operative extremity and the left upper extremity was then prepped and draped in normal sterile fashion. The operative extremity was the exsanguinated with an esmarch bandage and the tourniquet was inflated to 250mmHg. 15 blade scalpel was utilized to make a transverse incision on the palmar skin just ulnar to the palmaris longus tendon at the level of the distal wrist crease. Ragnell retractor was then placed radially and blunt dissection was performed to reveal the distal forearm fascia. This was lifted with fine Karl pick ups and Littler tenotomy scissors were then used to open the forearm fascia transversely and a double skin hook was then placed. Hamate finder was placed into the carpal tunnel and then sequential sized dilators were inserted followed by the synovial elevator to separate the flexor tenosynovium from the undersurface of the transverse carpal ligament and a washboard texture was felt. The Micro[employer]ire endoscopic carpal tunnel release system gun was the then inserted into the carpal tunnel hugging the deep portion of the transverse carpal ligament in line with the base of the ring finger. Transverse fibers of the ligament were directly visualized. Pressure was applied on the palm to reveal th e distal extent of the transverse carpal ligament. The blade was then deployed and the distal half of the transverse carpal ligament was released. The scope was then brought distal again and remaining transverse fibers were incised with the blade. The proximal half of the transverse carpal ligament was then divided and again the scope was advanced distal and remaining transverse fibers were incised with the blade. The radial and ulnar leaflets were directly visualized and mobile consistent with complete release. Tenotomy scissors were then utilized to release the remaining distal forearm fascia under direct visualization taking care to preserve the palmar cutaneous branch of the median nerve. Skin closure was performed with interrupted 4-0 Monocryl suture followed by Mastisol and steri strips. Sterile dressing was applied consisting of adaptic, 4x4s, Webril, and an farrukh bandage. Tourniquet was let down and the hand immediately was well perfused. The patient was then woken by the department of anesthesia and transferred to PACU in stable condition. Henry Canela D.O. Orthopedic Hand/Upper Extremity Surgeon
[2022-10-20 07:24] VITALS: RESP 16
[2022-10-20 07:39] VITALS: BP 126/78; PULSE 59
== END 2022-10-20 08:03 | disposition home or self-care (01) ==
LOC: OR 05:46
PROVIDERS: ATTEND Orthopaedic Surgery Hand Surgery
DX: G56.01 Carpal tunnel syndrome, right upper limb (principal); I10 Essential (primary) hypertension; Z86.73 Personal history of transient ischemic attack (TIA), and cerebral infarction without residual deficits; Z85.828 Personal history of other malignant neoplasm of skin; Z98.891 History of uterine scar from previous surgery; Z90.49 Acquired absence of other specified parts of digestive tract; Z90.710 Acquired absence of both cervix and uterus; Z79.890 Hormone replacement therapy; Z79.624 Long term (current) use of inhibitors of nucleotide synthesis; Z88.1 Allergy status to other antibiotic agents; Z79.899 Other long term (current) drug therapy
CPT/HCPCS: 84132; 29848; J2001; J2250; J1100; J2405; J3010; J2704; J0665